=== PATIENT | female | born 1980 | race Caucasian/White ===

== ENCOUNTER 2016-05-04 13:54 | Emergency (ER) | payer MEDICAID ==
[2016-05-04 14:11] VITALS: BMI 34.3
[2016-05-04 14:25] LABS: MPV 8.6 fL (7.4-10.4)
[2016-05-04 14:36] LABS: BLOOD UREA NITROGEN 10 MG/DL (7-17); CALCIUM 9.1 MG/DL (8.4-10.2); CALCULATED OSMOLALITY 267 MOs/Kg (270-290); CHLORIDE 104 mEq/L (98-107); GLUCOSE 129 MG/DL (70-99); SODIUM LEVEL 138 mEq/L (137-146); TOTAL PROTEIN 7.7 G/DL (6.3-8.2)
[2016-05-04 15:01] VITALS: TEMP 98.3
--- NOTE | 2016-05-04 15:24 | EDPRACDOC ---
- General Information Chief Complaint: Lower Leg Pain Stated Complaint: ? BLOOD CLOT LT LEG RECENT SURGERY Time Seen by Provider: 05/04/16 14:48 Mode Of Arrival: Car Home Medications: Home Medications Duloxetine HCl [Cymbalta] 60 mg PO DAILY 04/05/14 Lisinopril/Hydrochlorothiazide [Lisinopril-Hctz 10-12.5 mg Tab] 1 tab PO DAILY 06/01/15 Ranitidine [Zantac] 150 mg PO BID 06/01/15 Bupropion HCl [Bupropion HCl Sr] 100 mg PO DAILY 12/02/15 Hydrocodone Bit/Acetaminophen [Windsor 5-325 Tablet] 1 each PO Q4H #10 tab RX: Ibuprofen 600 mg PO TID #20 tablet 12/02/15 Cyclobenzaprine HCl [Flexeril] 10 mg PO TID PRN #20 tablet 05/04/16 Ibuprofen Tablet [Motrin] 800 mg PO TID PRN #30 tab 05/04/16 Allergies/Adverse Reactions: Allergies Allergy/AdvReac Type Severity Reaction Status Date / Time latex Allergy Severe Rash-Genera Verified 05/04/16 15:36 lized - History of Present Illness Onset: Yesterday Medications/Treatment COST ANALYST Treated With Medication COST ANALYST YES Medications COST ANALYST (Medication/ percocet last night Dose/Time) HPI: PT STATES HAD ACL AND MENISCUS REPAIR 2 WEEKS AGO, STATES YESTERDAY BEGAN TO NOTICE LEFT CALF PAIN, STATES IT WAS BURNING TYPE PAIN, PT STATES TODAY CALF IS SORE AND MORE SWOLLEN. PT DENIES CP OR SOBR, HAS BEEN TAKING ASPIRIN. Mechanism: Reports: None Circumstances: Reports: Spontaneous History of: Reports: Knee Operation Severity: Reports: Moderate Able to Bear Weight: Limited Associated Signs & Symptoms: Reports: Swelling Pain In: Reports: Leg - Treatment Prior to ED Arrival Reported Medications/Treatment COST ANALYST Treated With Medication COST ANALYST YES Medications COST ANALYST (Medication/ percocet last night Dose/Time) ED Past Medical History - History Reviewed Yes Nurses notes reviewed and agree except as marked - Patient Medical History Cardiac History: Reports: Hypertension GI/ History: Denies: Urinary Tract Infection Psychological History: Reports: Anxiety. Denies: Depression Systemic History: Denies: Cancer Surgical History: Reports: Tonsillectomy/Adnoidectomy - Social Medical History Smoking Status: Never smoker ETOH: None Substance Abuse: None EDM Review of Systems - Review of Systems Constitutional: Chills. negative: Fever Eyes: negative: Blurred Vision, Double Vision Ears: negative: Drainage Throat: negative: Pain Nose: negative: Congestion, Discharge Respiratory: negative: Cough, Shortness of Breath, Wheezing Cardiovascular: negative: Chest Pain, Palpitations Gastrointestinal: negative: Diarrhea, Nausea, Pain, Vomiting Genitourinary: negative: Dysuria, Frequency Neurological: negative: Dizziness, Headache, Numbness, Weakness Musculoskeletal: Leg Integumentary: No Symptoms Reported - Physical Exam Constitutional: Alert (Awake), No apparent distress Oriented to: Time, Person, Place Last recorded Vital Signs: Last Vital Signs Temp 98.3 F 05/04/16 14:57 Pulse 119 05/04/16 14:57 Resp 20 05/04/16 14:57 BP 140/83 05/04/16 14:57 Pulse Ox 98 05/04/16 14:57 Oxygen Pulse Oxygen Saturation 98 O2 Device Room Air Oxygen Flow Rate Fraction of Inspired Oxygen ( FIO2) - HEENT Head: Normal ( normocephalic) Eye Exam: Normal (PERRL, EOMI, Sclera white) Oropharynx: Normal (Pharynx:Moist without exudate,Gums-no swelling) Tympanic Membrane: Normal ENT EAC: Normal TMJ: Normal Nose: No Symptoms Reported (septum midline) Neck: Normal (FROM, trachea at midline) - Respiratory/Cardiovascular Respiratory: Normal - CTA (BBS clear to auscultation without adventitious sounds ) Cardiovascular: Normal (RRR without murmur, gallop or rub) - GI Auscultation: Normal (NABS) Palpation: Normal (Soft,No rebound or guarding, non distended) Tenderness: Non tender Retana's Sign: Negative - Musculoskeletal Back: Normal (Non-Tender) Extremities: Normal (Normal tone, Pulses 2+ No cyanosis or edema, FROM) - Integumentary Skin: Normal, Warm, Dry Lymphatics: Normal (no adenopathy) - Neurologic Memory Impaired: Normal Motor Function: Normal (Normal tone, Pulses 2+ No cyanosis or edema, FROM) Cranial Nerve: Normal (CN II-X11 intact sensation, strength 5/5) Cerebellar: Normal Mood Description: Normal Perception: Normal ED Low Extremities Phys Exam - Thigh Left Thigh Symptoms: Normal - Knee Left Anterior Knee Symptoms: Swelling, Limited ROM, Mild Tenderness. negative: Joint Effusion Knee Ligaments: Normal Knee Meniscus: Normal - Lower Leg Left Posterior Lower Leg Symptoms: Swelling, Moderate Tenderness, Other (+ JUSTIN'S SIGN) - Foot Left Foot Symptoms: Normal - Ankle Left Ankle Symptoms: Normal Achilles Tendon: Normal - Deficits Deficits: None, Capillary Refill. negative: Motor, Sensory, Pulse - Differential Diagnosis Sprain, Other (DVT) - Results 05/04/16 14:15 05/04/16 14:15 WBC 8.4 xk/uL (3.8-10.8) 05/04/16 14:15 RBC 4.22 xM/uL (4.20-5.40) 05/04/16 14:15 Hgb 12.6 g/dL (12.0-16.0) 05/04/16 14:15 Hct 37.4 % (36-47) 05/04/16 14:15 MCV 89 fL (81-99) 05/04/16 14:15 MCH 29.8 pg (27-32) 05/04/16 14:15 MCHC 33.7 g/dl (33-36) 05/04/16 14:15 RDW 12.7 % (11.5-14.5) 05/04/16 14:15 Plt Count 387 xk/uL (130-400) 05/04/16 14:15 MPV 8.6 fL (7.4-10.4) 05/04/16 14:15 PT 10.1 SEC (9.2-11.2) 05/04/16 14:15 INR 1.0 05/04/16 14:15 Sodium 138 mEq/L (137-146) 05/04/16 14:15 Potassium 3.5 mEq/L (3.5-5.1) 05/04/16 14:15 Chloride 104 mEq/L (98-107) 05/04/16 14:15 Carbon Dioxide 19 mMOL/L (22-33) L 05/04/16 14:15 Anion Gap 19 mEq/L (8-16) H 05/04/16 14:15 BUN 10 MG/DL (7-17) 05/04/16 14:15 Creatinine 0.90 MG/DL (0.52-1.04) 05/04/16 14:15 Estimated GFR (MDRD) > 60 mL/min (>=60) 05/04/16 14:15 Glucose 129 MG/DL (70-99) H 05/04/16 14:15 Calculated Osmolality 267 MOs/Kg (270-290) L 05/04/16 14:15 Calcium 9.1 MG/DL (8.4-10.2) 05/04/16 14:15 Total Bilirubin 0.5 MG/DL (0.2-1.3) 05/04/16 14:15 AST 20 IU/L (14-36) 05/04/16 14:15 ALT 26 IU/L (9-52) 05/04/16 14:15 Alkaline Phosphatase 78 IU/L (38-126) 05/04/16 14:15 Total Protein 7.7 G/DL (6.3-8.2) 05/04/16 14:15 Albumin 4.2 G/DL (3.5-5.0) 05/04/16 14:15 Lab Results 05/04/16 05/04/16 05/04/16 14:15 14:15 14:15 WBC 8.4 RBC 4.22 Hgb 12.6 Hct 37.4 MCV 89 MCH 29.8 MCHC 33.7 RDW 12.7 Plt Count 387 MPV 8.6 PT 10.1 INR 1.0 Sodium 138 Potassium 3.5 Chloride 104 Carbon Dioxide 19 L Anion Gap 19 H BUN 10 Creatinine 0.90 Estimated GFR (MDRD) > 60 Glucose 129 H Calculated Osmolality 267 L Calcium 9.1 Total Bilirubin 0.5 AST 20 ALT 26 Alkaline Phosphatase 78 Total Protein 7.7 Albumin 4.2 - Diagnostic Imaging US LLE Image interpreted by: Radiologist LEFT LOWER EXTREMITY VENOUS DUPLEX ULTRASOUND TECHNIQUE: Harper-scale sonography with graded compression, as well as color Doppler and duplex ultrasound were performed to evaluate the left lower extremity deep venous system from the level of the common femoral vein and including the common femoral, femoral, profunda femoral, popliteal and calf veins including the posterior tibial, peroneal and gastrocnemius veins when visible. The superficial great saphenous vein was also interrogated. Spectral Doppler was utilized to evaluate flow at rest and with distal augmentation maneuvers in the common femoral, femoral and popliteal veins. COMPARISON: None. FINDINGS: Contralateral Common Femoral Vein: Respiratory phasicity is normal and symmetric with the symptomatic side. No evidence of thrombus. Normal compressibility. Common Femoral Vein: No evidence of thrombus. Normal compressibility, respiratory phasicity and response to augmentation. Saphenofemoral Junction: No evidence of thrombus. Normal compressibility and flow on color Doppler imaging. Profunda Femoral Vein: No evidence of thrombus. Normal compressibility and flow on color Doppler imaging. Femoral Vein: No evidence of thrombus. Normal compressibility, respiratory phasicity and response to augmentation. Popliteal Vein: No evidence of thrombus. Normal compressibility, respiratory phasicity and response to augmentation. Calf Veins: No evidence of thrombus. Normal compressibility and flow on color Doppler imaging. Superficial Great Saphenous Vein: No evidence of thrombus. Normal compressibility and flow on color Doppler imaging. Venous Reflux: None. Other Findings: No lesion is seen by ultrasound in the left popliteal fossa region. IMPRESSION: No evidence of left lower extremity deep venous thrombosis. Right common femoral vein also patent. Decision Time to Discharge: 17:17 - Departure Disposition: Home Condition: Stable Final Diagnosis: Pain of left calf Instructions: Leg Cramps Education/Counseling Given To: Patient Education/Counseling Given Regarding: Diagnosis, Treatment, Prognosis, Follow Up Referrals: Hema Carl MD [Primary Care Provider] - One Week Prescriptions: Cyclobenzaprine HCl [Flexeril] 10 mg PO TID PRN #20 tablet PRN Reason: Muscle Spasms Ibuprofen Tablet [Motrin] 800 mg PO TID PRN #30 tab PRN Reason: Pain Additional Instructions: APPLY WARM COMPRESSES NEEDED FOR PAIN, ELEVATE YOUR LEG MUCH POSSIBLE, RETURN TO THE ED FOR ANY WORSENING SYMPTOMS OR CONCERNS.
--- NOTE | 2016-05-04 16:48 | DIRPT ---
CLINICAL DATA: Left lower extremity pain and burning, primarily in the popliteal fossa region EXAM: LEFT LOWER EXTREMITY VENOUS DUPLEX ULTRASOUND TECHNIQUE: Harper-scale sonography with graded compression, as well as color Doppler and duplex ultrasound were performed to evaluate the left lower extremity deep venous system from the level of the common femoral vein and including the common femoral, femoral, profunda femoral, popliteal and calf veins including the posterior tibial, peroneal and gastrocnemius veins when visible. The superficial great saphenous vein was also interrogated. Spectral Doppler was utilized to evaluate flow at rest and with distal augmentation maneuvers in the common femoral, femoral and popliteal veins. COMPARISON: None. FINDINGS: Contralateral Common Femoral Vein: Respiratory phasicity is normal and symmetric with the symptomatic side. No evidence of thrombus. Normal compressibility. Common Femoral Vein: No evidence of thrombus. Normal compressibility, respiratory phasicity and response to augmentation. Saphenofemoral Junction: No evidence of thrombus. Normal compressibility and flow on color Doppler imaging. Profunda Femoral Vein: No evidence of thrombus. Normal compressibility and flow on color Doppler imaging. Femoral Vein: No evidence of thrombus. Normal compressibility, respiratory phasicity and response to augmentation. Popliteal Vein: No evidence of thrombus. Normal compressibility, respiratory phasicity and response to augmentation. Calf Veins: No evidence of thrombus. Normal compressibility and flow on color Doppler imaging. Superficial Great Saphenous Vein: No evidence of thrombus. Normal compressibility and flow on color Doppler imaging. Venous Reflux: None. Other Findings: No lesion is seen by ultrasound in the left popliteal fossa region. IMPRESSION: No evidence of left lower extremity deep venous thrombosis. Right common femoral vein also patent. Electronically Signed By: Juan Luis Weaver III, M.D. On: 05/04/2016 16:46
[2016-05-04 17:16] VITALS: BP 127/82; PULSE 87
[2016-05-04] MEDS ORDERED: CYCLOBENZAPRINE 10 MG TAB PO ONE (17:16)
== END 2016-05-04 17:37 | disposition home or self-care (01) ==
LOC: EDMC 13:54
DX: M79.662 Pain in left lower leg (principal)
CPT/HCPCS: 36415; 80053; 85027; 85610; 93971; 99282; J3490